=== PATIENT | male | born 1960 | race Caucasian/White ===

== ENCOUNTER 2019-09-11 04:35 | Emergency (ER) | payer MEDICAID, OTHER ==
[~2019-09-11] VITALS: Ht 188 cm; Wt 108.9 kg
[2019-09-11 05:10] LABS: Basophils # (auto) 0 uL; Basophils % (auto) 0.6 % (0.0-2.0); Eosinophils # (auto) 0.1 uL; Eosinophils % (auto) 0.8 % (0.0-7.0); Hemoglobin 14.6 g/dL (13.5-17.5); Lymphocytes # (auto) 1.3 uL; Lymphocytes % (auto) 17.3 % (10.0-50.0); Mean Corpuscular Hemoglobin 29.8 pg (28.0-32.0); Mean Corpuscular Hgb Conc. 33.2 g/dL (32.0-36.0); Mean Corpuscular Volume 89.7 fL (80.0-100.0); Monocytes # (auto) 0.4 uL; Monocytes % (auto) 5.9 % (0.0-12.0); Neutrophils # (auto) 5.5 uL; Neutrophils % (auto) 75.4 % (37.0-80.0); Nucleated Red Blood Cells % 0.1 %; Platelet Count (auto) 325 10^3/uL (140-450); Red Cell Distribution Width 13.6 % (11.8-14.3); White Blood Cell 7.3 10^3/uL (4.4-10.8)
[2019-09-11 05:28] LABS: Albumin 3.8 g/dL (3.4-5.0); BUN/Creatinine Ratio 16.3; Calcium 9.4 mg/dL (8.5-10.1); Potassium 4.2 mmol/L (3.5-5.1)
[2019-09-11 05:31] LABS: Bilirubin, Total 0.4 mg/dL (0.2-1.0)
[2019-09-11 05:35] LABS: INR 1.04 (0.9-1.15); Partial Thromboplastin Time 25.1 sec (23.64-32.05)
[2019-09-11 09:26] LABS: Urine Bacteria NONE SEEN /hpf (None Seen); Urine Blood Negative /uL (Negative); Urine Hyaline Cast MOD /lpf (0 - 2); Urine Mucus FEW (None Seen); Urine Specific Gravity 1.027 (1.001-1.035); Urine WBC 4 /hpf (0 - 3)
[2019-09-11 09:31] LABS: Alcohol, Urine < 3.0 mg/dL (0-5); Amphetamine Screen, Urine POSITIVE (NEGATIVE); Barbiturate Scree,Urine NEGATIVE (NEGATIVE); Benzodiazephine Screen, Urine NEGATIVE (NEGATIVE); Cannabinoid Screen, Urine POSITIVE (NEGATIVE); Cocaine Screen, Urine NEGATIVE (NEGATIVE); Opiate Scree,Urine NEGATIVE (NEGATIVE); Phencyclidine Screen, Urine NEGATIVE (NEGATIVE)
[2019-09-11 10:42] VITALS: BP 118/77
== END 2019-09-11 10:44 | disposition home or self-care (01) ==
LOC: ER 04:35 → EDBD 04:35 → ER 10:44
DX: R55 Syncope and collapse (principal); J32.9 Chronic sinusitis, unspecified; M47.892 Other spondylosis, cervical region; E11.21 Type 2 diabetes mellitus with diabetic nephropathy; F15.10 Other stimulant abuse, uncomplicated; F12.10 Cannabis abuse, uncomplicated; I10 Essential (primary) hypertension; M54.2 Cervicalgia; Z87.891 Personal history of nicotine dependence
CPT/HCPCS: 36415; 70450; 71045; 72125; 80053; 80307; 81001; 84484; 85025; 85379; 85610; 85730; 93005